=== PATIENT | female | born 1960 | race Caucasian/White ===

== ENCOUNTER 2024-02-29 07:19 | Day surgery (SDC) | payer BC ==
[~2024-02-29] VITALS: Ht 160 cm; Wt 63.6 kg
[~2024-02-29 07:19] MED LIST: CALCIUM500 MG PO; CARAFATE1 GM PO; CARVEDILOL6.25 MG PO; CITRACAL + D M1 EACH PO; ESTRADIOL42.5 GM TOP; FAMOTIDINE20 MG PO; IBLOOD GLUCOSE TEST STRIP 1 EA TEST VI PRN; IMITREX50 MG PO; LACTATED RINGER'S 1,000 ML IV SCH; LEVOTHYROXINE75 MC1 PO; LIDOCAINE HCL 1% 5 ML SDV INJ ONE; MIDAZOLAM HCL 5 MG/5 ML VIAL IV PRN; MONTELUKAST SOD10 MG PO; MULTI VITAMIN1 EACH PO; SIMVASTATIN20 MG PO; WELLBUTRIN SR150 MG PO; fentaNYL citrate 100 MCG/2 ML VIAL IV PRN
[2024-02-29 07:41] VITALS: BP 131/75
[2024-02-29] MEDS ORDERED: CLARITIN10 M2 PO (07:47)
[2024-02-29] MEDS ORDERED: fentaNYL citrate 100 MCG/2 ML VIAL ONE (08:42)
[2024-02-29] MEDS ORDERED: MIDAZOLAM HCL 5 MG/5 ML VIAL ONE (08:42)
--- NOTE | 2024-02-29 09:49 | NUR ---
02/29/24 0949 Joanna Dave 0940 PT TO PACU ALERT AND AWAKE DENIES PAIN AND NAUSEA. PT ASKING FOR WATER. WATER GIVEN AFTER DR VISITS WITH PT.
[2024-02-29 10:02] VITALS: BP 114/70
--- NOTE | 2024-03-01 12:49 | OR ---
[facility] [address] [place], [place] [address] Signed DATE OF OPERATION: 02/29/2024 SURGEON: Paloma Rutledge MD PREOPERATIVE DIAGNOSIS: Colon screening. POSTOPERATIVE DIAGNOSIS: Polyps x7 (small). PROCEDURE: Total colonoscopy to cecum with cold morcellation polypectomy x7.. ANESTHESIA: Intravenous sedation; fentanyl 150 mcg and Versed 5 mg. INDICATION: This 63-year-old white woman is a patient of FARA Magdalneo. She lives in [place], [place]. She last underwent colonoscopy in [place] by Dr. Michael Murguia. Findings are unknown. She is currently asymptomatic and has no family history of colon cancer. She is admitted at this time to undergo screening colonoscopy. She understands the risk of bleeding, infection, and perforation. FINDINGS: The prep was quite good. Complete colonoscopy was undertaken to the cecum was full intubation of the cecum. She had multiple small polyps, all of them adenomatous in appearance, none of them worrisome for malignancy. This included the cecum, right colon, hepatic flexure, sigmoid, rectosigmoid and rectum. PROCEDURE IN DETAIL: The patient was brought to the endoscopy suite and placed in the lateral decubitus position, given intravenous sedation to the point of slurred speech and nystagmus. Digital rectal examination was normal. An Olympus video colonoscope was passed in the rectum and manipulated throughout the colon. At the hepatic flexure, there were three small polyps, all excised with cold morcellation technique. The scope was advanced to the cecum. The ileocecal valve and appendiceal orifice were normal. A small polyp was noted in the cecum, which was excised with cold morcellation technique. The scope was withdrawn and in the mid right colon there was another adenomatous appearing polyp, which was similarly excised with Electronically Signed By: PALOMA RUTLEDGE MD 03/01/24 1249 PATIENT NAME: MAXIM GRUBER OPERATIVE REPORT DATE OF : 58 REPORT #: [id number] PHYSICIAN: PALOMA RUTLEDGE MD PCP: KATHY CHAUHAN REPORT IS CONFIDENTIAL AND NOT TO BE RELEASED WITHOUT AUTHORIZATION [facility] [address], [place] [address] Signed cold morcellation technique. Withdrawal past the hepatic flexure showed the three excision sites to be hemostatic. Further withdrawal showed a small polyp in the distal descending/sigmoid area, which was excised with cold morcellation technique and another polyp of the rectosigmoid similarly excised. Retroflexed view of the rectum showed a very tiny low rectal polyp which was also excised. The scope was straightened, withdrawn, and removed. The patient was taken to the recovery room in good condition. CONCLUDING DIAGNOSIS: Multiple polyps, all small, likely they are adenomatous. PLAN: Would recommend repeat colonoscopy in 1 to 2 years based on the number of polyps excised on this occasion. She will return to the ongoing care of FARA Magdaleno. MD ORIANA Portillo/HUY /[id number] cc: FARA Magdaleno. Copies: ~ Electronically Signed By: PALOMA RUTLEDGE MD 03/01/24 1249 PATIENT NAME: MAXIM GRUBER OPERATIVE REPORT DATE OF : 58 REPORT #: [id number] PHYSICIAN: PALOMA RULTEDGE MD PCP: KATHY CHAUHAN REPORT IS CONFIDENTIAL AND NOT TO BE RELEASED WITHOUT AUTHORIZATION
--- NOTE | 2024-03-04 14:00 | PATH ---
[facility] [address] [place], [place] [address] Signed SPECIMEN(S): A HEPATIC FLEXURE COLON POLYPS SPECIMEN(S): B CECUM COLON POLYP SPECIMEN(S): C ASCENDING/RIGHT COLON POLYP SPECIMEN(S): D SIGMOID POLYP SPECIMEN(S): E RECTOSIGMOID POLYP SPECIMEN(S): F RECTAL POLYP SPECIMEN SOURCE: A. HEPATIC FLEXURE COLON POLYPS B. CECUM COLON POLYP C. ASCENDING/RIGHT COLON POLYP D. SIGMOID POLYP E. RECTOSIGMOID POLYP F. RECTAL POLYP CLINICAL HISTORY: Having constipation and lower abdominal pain, surveillance colonoscopy FINAL PATHOLOGIC DIAGNOSIS: A. Hepatic flexure polyps, biopsies: - Fragments of tubular adenoma. B. Cecal polyp, biopsy: - Unremarkable colonic mucosa. C. Ascending/right colon polyp, biopsies: - Benign lymphoid polyp. D. Sigmoid polyp, biopsies: - Fragments of tubular adenoma. E. Rectosigmoid polyp, biopsy: - Hyperplastic polyp. F. Rectal polyp, biopsy: - Hyperplastic polyp. AMB MICROSCOPIC EXAMINATION: Histologic sections of all submitted blocks are examined by light microscopy. These findings, together with the gross examination, support the pathologic diagnosis. GROSS DESCRIPTION: A. The specimen, labeled and designated "David hepatic flexure colon polyps," is received in formalin and consists of six rodriguez soft tissue fragments, PATIENT NAME: MXAIM GRUBER PATHOLOGY DATE OF : 58 REPORT #: [id number] PHYSICIAN: [facility] PATHOLOG[facility] PCP: KATHY CHAUHAN REPORT IS CONFIDENTIAL AND NOT TO BE RELEASED WITHOUT AUTHORIZATION [facility] [address] [place], [place] [address] Signed ranging from 0.2-0.3 cm. Entirely submitted in (A1). B. The specimen, labeled and designated "Allstott, cecum colon polyp," is received in formalin and consists of one rodriguez soft tissue fragment, 0.3 cm. Entirely submitted in (B1). C. The specimen, labeled and designated "Allstott, ascending/right colon polyp," is received in formalin and consists of three rodriguez soft tissue fragments, ranging from 0.2-0.4 cm. Entirely submitted in (C1). D. The specimen, labeled and designated "Allstott, sigmoid polyp," is received in formalin and consists of three rodriguez soft tissue fragments, ranging from 0.1-0.2 cm. Entirely submitted in (D1). E. The specimen, labeled and designated "Allstott, rectosigmoid polyp," is received in formalin and consists of one rodriguez soft tissue fragment, 0.3 cm. Entirely submitted in (E1). F. The specimen, labeled and designated "Allstott, low rectal polyp," is received in formalin and consists of one rodriguez soft tissue fragment, 0.3 cm. Entirely submitted in (F1). VB (under the direct supervision of a pathologist) The Gross Description was prepared using a voice recognition system. The report was reviewed for accuracy; however, sound-alike word errors, addition and/or deletions may occur. If there is any question about this report, please contact Client Services. ADDITIONAL NOTES: Immunohistochemical and/or in situ hybridization studies if performed in this case included appropriate positive controls that reacted as expected. This test was developed and its performance characteristics determined by [facility]. It has not been cleared or approved by the U.S. Food and Drug Administration. The FDA has determined that such clearance or approval is not necessary. This test is used for clinical purposes. It should not be regarded as investigational or for research. [facility] is certified under the Clinical Laboratory Improvement Amendments of 1988 (CLIA) as qualified to perform high complexity clinical laboratory testing. PERFORMING LABORATORY: Technical component was performed by [facility], [address] [place] [address] (CLIA# [id number]). Professional interpretation was performed by [facility] PATIENT NAME: MAXIM GRUBER PATHOLOGY DATE OF : 58 REPORT #: [id number] PHYSICIAN: HERMAN PATHOLOGY PCP: KATHY CHAUHAN REPORT IS CONFIDENTIAL AND NOT TO BE RELEASED WITHOUT AUTHORIZATION [facility] [address] [place], [place] [address] [address] [id number] Diagnostician: Ginger Evangelista MD Pathologist Electronically Signed 03/04/2024 Copies: ~ PATIENT NAME: MAXIM GRUBER PATHOLOGY DATE OF : 58 REPORT #: [id number] PHYSICIAN: HERMAN AUGUSTE PCP: KATHY CHAUHAN REPORT IS CONFIDENTIAL AND NOT TO BE RELEASED WITHOUT AUTHORIZATION
== END 2024-02-29 10:15 | disposition home or self-care (01) ==
LOC: OPS 07:19 → DS 07:23 → OPS 08:45 → DS 08:45 → OPS 10:15
PROVIDERS: ATTEND Surgery
PROC: 0DBL8ZZ Excision of Transverse Colon, Via Natural or Artificial Opening Endoscopic (ICD-10-PCS; 2024-02-29)
PROC: 0DBN8ZZ Excision of Sigmoid Colon, Via Natural or Artificial Opening Endoscopic (ICD-10-PCS; 2024-02-29)
PROC: 0DBP8ZZ Excision of Rectum, Via Natural or Artificial Opening Endoscopic (ICD-10-PCS; 2024-02-29)
PROC: 0DBF8ZZ Excision of Right Large Intestine, Via Natural or Artificial Opening Endoscopic (ICD-10-PCS; 2024-02-29)
PROC: 0DBH8ZZ Excision of Cecum, Via Natural or Artificial Opening Endoscopic (ICD-10-PCS; principal; 2024-02-29 08:45)
DX: Z12.11 Encounter for screening for malignant neoplasm of colon (principal); D12.3 Benign neoplasm of transverse colon; D12.5 Benign neoplasm of sigmoid colon; K63.5 Polyp of colon; K21.9 Gastro-esophageal reflux disease without esophagitis; E03.9 Hypothyroidism, unspecified; Z90.711 Acquired absence of uterus with remaining cervical stump
CPT/HCPCS: 99153; G0500; J2250; J3010; J7121

== ENCOUNTER 2025-06-26 08:21 | Day surgery (SDC) | payer MEDICARE ==
[~2025-06-26] VITALS: Ht 160 cm; Wt 64.0 kg
[~2025-06-26 08:21] MED LIST changes: +CLARITIN10 M2 PO
[2025-06-26 08:38] VITALS: BP 129/62
[2025-06-26] MEDS ORDERED: MIDAZOLAM HCL 5 MG/5 ML VIAL ONE (09:24)
[2025-06-26] MEDS ORDERED: fentaNYL citrate 100 MCG/2 ML VIAL ONE (09:25)
--- NOTE | 2025-06-26 10:22 | NUR ---
06/26/25 1022 Sheets,Delaney 1018 PT ARRIVED TO PACU ON 3L VIA NC, PT WAKES EAISLY AND DENIES CONCERNS. PT EASILY FALLS BACK TO SLEEP, RESP EVEN AND UNLABORED.
[2025-06-26 10:43] VITALS: BP 107/67
--- NOTE | 2025-06-26 12:57 | OR ---
[facility] [address] [place], [place] [address] Signed DATE OF OPERATION: 06/26/2025 SURGEON: Paloma Rutledge MD PREOPERATIVE DIAGNOSIS: History of seven polyps 2023. POSTOPERATIVE DIAGNOSES: 1. Diverticulosis sigmoid and left colon. 2. Polyps x4. PROCEDURES: Total colonoscopy to cecum with cold snare polypectomy x2, cold morcellation polypectomy x2. ANESTHESIA: Intravenous sedation, fentanyl 150 mcg, and Versed 5 mg. INDICATION: This 65-year-old woman is a patient of Kathy Chauhan PA-C and underwent colonoscopy by me in February of 2024, at which time she was found to have seven polyps. She has no current symptoms of bleeding, diarrhea, or constipation and no known family history of colon cancer. On the basis of her excessive number of polyps previously excised, I have recommended a repeat colonoscopy. The risk of bleeding, infection, and perforation related to colonoscopy were reviewed with her. She understands and wished to proceed. FINDINGS: The prep was excellent. Complete colonoscopy was undertaken of the cecum. She had diverticula of the sigmoid and left colon. She had four polyps in total, one in the right colon, another transverse and another in the left colon and another in the rectum. All were excised completely. DESCRIPTION OF PROCEDURE: The patient was brought to the endoscopy suite and placed in lateral decubitus position, given intravenous sedation to the point of slurred speech and nystagmus. Digital rectal examination was normal. An Olympus video colonoscope was passed in the rectum and manipulated throughout the colon ultimately intubating the cecum itself. Diverticula were noted throughout. The scope was withdrawn from that point and a small polyp was noted in the right colon, Electronically Signed By: PALOMA RUTLEDGE MD 06/26/25 1257 PATIENT NAME: MAXIM GRUBER OPERATIVE REPORT DATE OF : 58 REPORT #: [id number] PHYSICIAN: PALOMA RUTLEDGE MD PCP: KATHY CHAUHAN REPORT IS CONFIDENTIAL AND NOT TO BE RELEASED WITHOUT AUTHORIZATION [facility] [address] [place], [place] [address] Signed which was excised with cold morcellation technique. Further withdrawal showed another polyp in the mid transverse colon, similarly excised. Further withdrawal confirmed diverticulosis of the left colon and a polyp in the left colon, which was excised with cold snare technique. Yet another polyp was noted in the rectum, which was excised with cold snare technique. Retroflexed view was otherwise normal. Scope was removed. The patient was taken to the recovery in good condition having suffered no complication. CONCLUDING DIAGNOSES: Polyps x4, and diverticulosis. PLAN: Recommend repeat colonoscopy in 3-5 years, sooner if symptoms should develop. She will return to the ongoing care of Kathy Chauhan PA-C. MD ORIANA Portillo/HUY /[id number] cc: Kathy Chauhan Copies: ~ Electronically Signed By: PALOMA RUTLEDGE MD 06/26/25 [facility] PATIENT NAME: MAXIM GRUBER OPERATIVE REPORT DATE OF : 58 REPORT #: [id number] PHYSICIAN: PALOMA RUTLEDGE MD PCP: KATHY CHAUHAN REPORT IS CONFIDENTIAL AND NOT TO BE RELEASED WITHOUT AUTHORIZATION
--- NOTE | 2025-06-30 09:55 | PATH ---
[facility] [address] [facility] [place], [place] [address] Signed SPECIMEN(S): A ASCENDING POLYP SPECIMEN(S): B TRANSVERSE POLYP SPECIMEN(S): C SIGMOID POLYP SPECIMEN(S): D RECTAL POLYP SPECIMEN SOURCE: A. ASCENDING POLYP B. TRANSVERSE POLYP C. SIGMOID POLYP D. RECTAL POLYP CLINICAL HISTORY: Surveillance, history of polyps, diverticuli FINAL PATHOLOGIC DIAGNOSIS: A. Ascending polyp: - Tubular adenoma. B. Transverse polyp: - Tubular adenoma. C. Sigmoid polyp: - Hyperplastic polyp. D. Rectal polyp: - Hyperplastic polyp. JVR MICROSCOPIC EXAMINATION: Histologic sections of all submitted blocks are examined by light microscopy. These findings, together with the gross examination, support the pathologic diagnosis. GROSS DESCRIPTION: A. The specimen, labeled and designated "Michaelstalireza, ascending polyp," is received in formalin and consists of one rodriguez soft tissue fragment, 0.5 cm. Entirely submitted in (A1). B. The specimen, labeled and designated "Allstott, transverse polyp," is received in formalin and consists of two rodriguez soft tissue fragments, ranging from 0.1-0.2 cm. Entirely submitted in (B1). C. The specimen, labeled and designated "Allstott, sigmoid polyp," is received in formalin and consists of one rodriguez soft tissue fragment, 0.2 cm. Entirely submitted in (C1). D. The specimen, labeled and designated "Allstott, rectal polyp," is received PATIENT NAME: MAXIM GRUBER PATHOLOGY DATE OF : 58 REPORT #: [id number] PHYSICIAN: HERMAN AUGUSTE PCP: KATHY CHAUHAN REPORT IS CONFIDENTIAL AND NOT TO BE RELEASED WITHOUT AUTHORIZATION [facility] [address] [place], [place] [address] Signed in formalin and consists of one rodriguez soft tissue fragment, 0.3 cm. Entirely submitted in (D1). VB (under the direct supervision of a pathologist) The Gross Description was prepared using a voice recognition system. The report was reviewed for accuracy; however, sound-alike word errors, addition and/or deletions may occur. If there is any question about this report, please contact Client Services. ADDITIONAL NOTES: Immunohistochemical and/or in situ hybridization studies if performed in this case included appropriate positive controls that reacted as expected. This test was developed and its performance characteristics determined by [facility]. It has not been cleared or approved by the U.S. Food and Drug Administration. The FDA has determined that such clearance or approval is not necessary. This test is used for clinical purposes. It should not be regarded as investigational or for research. [facility] is certified under the Clinical Laboratory Improvement Amendments of 1988 (CLIA) as qualified to perform high complexity clinical laboratory testing. PERFORMING LABORATORY: Technical component was performed by [facility], [address] [place] [id number] (CLIA# [id number]). Professional interpretation was performed by [facility] [place] [facility] - [address] [place] [place] [address] (CLIA#: [id number]). Diagnostician: Gabe Hdez MD Pathologist Electronically Signed 06/30/2025 Copies: ~ PATIENT NAME: MAXIM GRUBER PATHOLOGY DATE OF : 58 REPORT #: [id number] PHYSICIAN: [facility]MAN PATH[facility] PCP: KATHY CHAUHAN REPORT IS CONFIDENTIAL AND NOT TO BE RELEASED WITHOUT AUTHORIZATION
== END 2025-06-26 10:59 | disposition home or self-care (01) ==
LOC: OPS 08:21 → DS 08:21 → OPS 08:30
PROVIDERS: ATTEND Surgery
PROC: 0DBF8ZZ Excision of Right Large Intestine, Via Natural or Artificial Opening Endoscopic (ICD-10-PCS; 2025-06-26)
PROC: 0DBG8ZZ Excision of Left Large Intestine, Via Natural or Artificial Opening Endoscopic (ICD-10-PCS; principal; 2025-06-26 09:05)
DX: D12.2 Benign neoplasm of ascending colon (principal); D12.3 Benign neoplasm of transverse colon; K62.1 Rectal polyp; K63.5 Polyp of colon; K57.30 Diverticulosis of large intestine without perforation or abscess without bleeding; K59.09 Other constipation; K21.00 Gastro-esophageal reflux disease with esophagitis, without bleeding; L30.9 Dermatitis, unspecified; E89.0 Postprocedural hypothyroidism; Z86.0101 Personal history of adenomatous and serrated colon polyps; Z86.0102 Personal history of hyperplastic colon polyps; Z79.890 Hormone replacement therapy; Z79.899 Other long term (current) drug therapy; Z90.710 Acquired absence of both cervix and uterus
CPT/HCPCS: 99153; G0500; J2250; J3010; J7121